=== PATIENT | male | born 1985 | race Caucasian/White ===

== ENCOUNTER 2025-02-11 17:03 | Inpatient (IN) | payer MEDICAID ==
[2025-02-11] VITALS (20 sets, daily range): BP systolic 120–139; BP diastolic 78–93; PULSE 58–101; RESP 13–20; TEMP 97.4–97.8; O2SAT 97–98
[~2025-02-11] VITALS: Ht 177.8 cm; Wt 77.3 kg
[~2025-02-11 17:03] MED LIST: aspirin 81mg tab.chew ONE
[2025-02-11] MEDS: aspirin 81mg tab.chew PO ONE (17:27)
[2025-02-11] MEDS: nitroGLYCERIN 0.4mg SUBLingual tab SL ONE (17:28)
--- NOTE | 2025-02-11 17:28 | Physician Documentation ---
History of Present Illness ~ Chief Complaint: Chest Pain Stated Complaint: CP Time Seen by MD: 17:22 HPI 39-year-old male history of prior IV drug use sober greater than 12 months presenting for chest pain. He is complaining of substernal chest discomfort ongoing 3 days with burning and radiation down his left arm as well as associated shortness of breath. He does endorse relapsing on methamphetamine Medication Reconciliation Allergies: Coded Allergies: No Known Allergies (Unverified , 02/11/25) Review of Systems All Other Systems at this time: Reviewed and Negative Constitutional: Denies: fever Physical Exam Physical Exam Well-appearing no distress resting comfortably in bed No JVD Moist mucous membranes Pulmonary clear to auscultation bilaterally Cardiac no murmur Abdomen is soft nontender Lower extremity no edema Awake alert oriented Progress Results/Orders Reviewed/noted all lab results: Yes Results/Orders Orders - AGUILAR HORNER MD Chest,Single View (02/11/25 17:35) Saline Lock (02/11/25 17:22) Monitor (02/11/25 17:22) Oxygen (02/11/25 17:22) Page Hospitalist (02/11/25 17:28) Fill Out Med Reconciliation (02/11/25 17:28) Completed Orders - AGUILAR HORNER MD Cbc/Diff (02/11/25 17:22) MG (02/11/25 17:22) Electrocardiogram (02/11/25 17:22) PBNP (02/11/25 17:22) Chest,Single View (02/11/25 17:35) Aspirin 81mg Chew Tablet (Aspirin 81mg C (02/11/25 17:25) BMP (02/11/25 17:22) Troponin (Single) (02/11/25 17:22) ESR (02/11/25 17:22) Nitroglycerin Sublingual Tab (Nitrostat (02/11/25 17:25) C-Reactive Protein (02/11/25 17:22) Drug Screen, Urine (02/11/25 17:24) Lidocaine 1%/Pf 2ml (Xylocaine-Mpf 1% Vi (02/11/25 17:33) Verapamil Inj (Verapamil Inj) (02/11/25 17:33) Midazolam 1 Mg/Ml 2ml Inj. (Versed 1 Mg/ (02/11/25 17:33) Fentanyl/Pf (Fentanyl 0.05 Mg/Ml Syringe (02/11/25 17:33) Heparin 1,000unit/Ml 10ml Vial (Heparin (02/11/25 17:33) Iohexol 350mg/Ml 100ml (Omnipaque 350mg/ (02/11/25 17:33) Heparin 1,000 Units/Ns 500ml (Heparin 1, (02/11/25 17:33) Nitroglycerin 500mcg/5ml D5w (Nitroglyce (02/11/25 17:34) Epinephrine Inj Syringe (Epinephrine Inj (02/11/25 17:48) Atropine Syringe (Atropine Syringe) (02/11/25 17:48) Midazolam 1 Mg/Ml 2ml Inj. (Versed 1 Mg/ (02/11/25 17:53) Ticagrelor Tablet (Brilinta Tablet) (02/11/25 17:55) Tirofiban 12.5mg In Ns 250ml (Aggrastat (02/11/25 18:06) Liver Panel (02/11/25 17:27) Vital Signs 02/11/25 17:23 Temp 97.8 Pulse 102 Resp 15 B/P (MAP) 128/91 Pulse Ox 99 Laboratory Tests Test 02/11/25 17:27 White Blood Count 10.7 Red Blood Count 5.73 Hemoglobin 16.5 Hematocrit 49.1 Mean Corpuscular Volume 85.8 Mean Corpuscular Hemoglobin 28.9 Mean Corpuscular Hemoglobin Concent 33.6 Red Cell Distribution Width 15.1 H Platelet Count 675 H Mean Platelet Volume 8.1 Neutrophils (%) (Auto) 76.9 H Lymphocytes (%) (Auto) 12.6 L Monocytes (%) (Auto) 8.1 Eosinophils (%) (Auto) 1.8 Basophils (%) (Auto) 0.6 Neutrophils # (Auto) 8.2 H Lymphocytes # (Auto) 1.4 Monocytes # (Auto) 0.9 Eosinophils # (Auto) 0.2 Basophils # (Auto) 0.1 CBC Comment Erythrocyte Sedimentation Rate 3 Prothrombin Time 11.1 INR International Normalized Ratio 1.1 Activated Partial Thromboplast Time 30 Coagulation Comments Sodium Level 144 Potassium Level 4.2 Chloride Level 103 Carbon Dioxide Level 34.4 H Anion Gap 7 L Blood Urea Nitrogen 4 L Creatinine 0.86 Estimated GFR/1.73 m2 > 90 BUN/Creatinine Ratio 4.7 L Glucose Level 96 Calcium Level 8.9 Magnesium Level 2.1 Total Bilirubin 0.3 Direct Bilirubin 0.1 Aspartate Amino Transf (AST/SGOT) 48 H Alanine Aminotransferase (ALT/SGPT) 27 Alkaline Phosphatase 90 Troponin I High Sensitivity 7917 *H C-Reactive Protein 1.01 H Pro-B-Type Natriuretic Peptide 1241 H Total Protein 7.8 Albumin 3.9 Globulin 3.9 Albumin/Globulin Ratio 1.0 L Chemistry Comments EKG/XRAY/CT/US/VASC/MRI EKG : Additional Comment EKG independently interpreted by myself time 5:05 p.m. indication chest pain normal sinus rhythm rate 76 normal axis normal intervals lateral ST-elevation VT Heart Score: Heart Score Response (Comments) Value History Highly Suspicious [address]-Deviation 2 Age <45 0 Risk Factors No known risk factors 0 Troponin >3 x's Normal limit 2 Total 6 Medical Decision Making Findings Consulted crane engineer they agree with STEMI taken to the school laboratory technician Additional Information Pericarditis acute coronary syndrome, pulmonary embolism Departure Disposition: ADMITTED INPATIENT Impression: Primary Impression: STEMI (ST elevation myocardial infarction) Qualified Codes: I21.3 - ST elevation (STEMI) myocardial infarction of unspecified site Referrals: NO PRIMARY CARE PROVIDER (PCP) Critical Care Note Total Time (mins): 30 Critical Care Note The very real possibility of a deterioration of this patient's condition required the highest level of my preparedness for sudden, emergent intervention. I provided critical care services, which included medication orders, frequent reevaluations of the patient's condition and response to treatment, ordering and reviewing test results, and discussing the case with various consultants. Excludes time spent performing separately billable procedures. The critical care time associated with the care of the patient was 30 minutes in the management of acute ST-elevation myocardial infarction Signature Scribe Signature: osito Attestation: AGUILAR Neil MD Feb 11, 2025 17:28
[2025-02-11] MEDS ORDERED: LIDOcaine 1% (10mg/ml) 2ml vial ONE (17:33)
[2025-02-11] MEDS ORDERED: verapamil 2.5 mg/ml inj IV ONE (17:33)
[2025-02-11] MEDS ORDERED: iohexol 350MG/ML 100ml bottle IV ONE (17:33)
[2025-02-11] MEDS ORDERED: midazolam 1 mg/ML 2ml injection ONE ×2 (17:33→17:53)
[2025-02-11] MEDS ORDERED: heparin 1,000unit/ml 10ml vial 10 ML ONE (17:33)
[2025-02-11] MEDS ORDERED: fentaNYL/PF 50MCG/1 ML 2ML syringe ONE (17:33)
[2025-02-11] MEDS ORDERED: nitroGLYCERIN 500mcg/5mL D5W 5 ML IV ONE (17:34)
[2025-02-11 17:41] LABS: BASOPHILS # (AUTO) 0.1 X10'3 (0-0.2); EOSINOPHILS # (AUTO) 0.2 X10'3 (0-0.9)
[2025-02-11 17:43] LABS: BASOPHILS % (AUTO) 0.6 % (0-1); EOSINOPHILS % (AUTO) 1.8 % (0-6); HEMATOCRIT 49.1 % (42.0-52.0); HEMOGLOBIN 16.5 g/dl (14.0-17.9); LYMPHOCYTES # (AUTO) 1.4 X10'3 (1.1-4.8); LYMPHOCYTES % (AUTO) 12.6 % (21-51); MEAN CORPUSCULAR HEMOGLOBIN 28.9 PG (27.0-31.0); MEAN CORPUSCULAR HGB CONC 33.6 g/dL (33.0-36.5); MEAN CORPUSCULAR VOLUME 85.8 FL (78-98); MEAN PLATELET VOLUME 8.1 FL (7.4-10.4); MONOCYTES # (AUTO) 0.9 X10'3 (0-0.9); MONOCYTES % (AUTO) 8.1 % (2-12); NEUTROPHILS # (AUTO) 8.2 X10'3 (1.8-7.7); NEUTROPHILS % (AUTO) 76.9 % (42-75); PLATELET COUNT 675 X10'3 (140-440); RED BLOOD COUNT 5.73 X10'6 (4.70-6.10); RED CELL DISTRIBUTION WIDTH 15.1 % (11.5-14.5); WHITE BLOOD COUNT 10.7 X10'3 (4.5-11.0)
[2025-02-11] MEDS ORDERED: epiNEPHrine 0.1mg/ml 10ml syringe ONE (17:48)
[2025-02-11] MEDS ORDERED: atropine 0.1mg/ml 10ml syringe ONE (17:48)
--- NOTE | 2025-02-11 17:51 | ELECTROCARDIOGRAPH REPORT ---
[facility] Test Date: 2025-02-11 Test Time: 17:05:54 Pat Name: TRISH HOLDEN Department: EMERGENCY ROOM Room: Gender: M Camp Director: YAMEL : 1985 Requested By: AGUILAR HORNER Order Number: [id number] Reading MD: Measurements Intervals [place] Rate: 96 P: 98 [place]: 132 QRS: 90 QRSD: 93 T: 74 QT: 344 QTc: 435 Interpretive Statements Sinus rhythm Inferolateral infarct, acute Anterior infarct, acute Please click the below link to view image of tracing.
[2025-02-11] MEDS ORDERED: ticagrelor 90mg tablet ONE (17:55)
[2025-02-11 18:00] LABS: ALBUMIN 3.9 G/DL (3.4-5.0); ANION GAP 7 (8-16); BLOOD UREA NITROGEN 4 MG/DL (7-18); BUN/CREATININE RATIO 4.7 (10.0-20.0); C-REACTIVE PROTEIN 1.01 MG/DL (0.0-0.5); CALCIUM 8.9 MG/DL (8.5-10.1); CHLORIDE 103 MMOL/L (99-107); CREATININE 0.86 MG/DL (0.60-1.10); GLUCOSE 96 MG/DL (70-104); MAGNESIUM 2.1 MG/DL (1.5-2.4); POTASSIUM 4.2 MMOL/L (3.5-5.1); PRO BRAIN NATRIURETIC PEPTIDE 1241 PG/ML (0-125); SODIUM 144 MMOL/L (135-145); TOTAL CARBON DIOXIDE 34.4 MMOL/L (24-32); eCRCL 121 ML/MIN; eGFR > 90 ML/MIN
--- NOTE | 2025-02-11 18:03 | RADIOLOGY REPORT ---
EXAM: XR Chest, 1 View CLINICAL INDICATION: CP TECHNIQUE: Frontal view of the chest. COMPARISON: None FINDINGS: LUNGS AND PLEURAL SPACES: Unremarkable. No consolidation. No pneumothorax. HEART: Unremarkable. No cardiomegaly. MEDIASTINUM: Unremarkable. Normal mediastinal contour. BONES/JOINTS: Unremarkable. No acute fracture. OTHER FINDINGS: . IMPRESSION: No acute cardiopulmonary process.
[2025-02-11] MEDS ORDERED: tirofiban 12.5mg in NS 250mL 250 ML IV ONE (18:06)
--- NOTE | 2025-02-11 18:18 | CARDIAC CATH REPORT ---
Cardiac Cath Report Providers to CC CC: JORDANA GRAJEDA MD Procedure Comments: 1. Left Heart Catheterization 2. Selective Coronary Angiography 3. Percutaneous Coronary Intervention of the Left Anterior Descending x 1 4. Right Radial Artery Access Brief History/Indications: 39yo man with PMH significant for methamphetamine use, tobacco use admitted with CP x 2 days, found to have anterolateral STEMI. Techniques: After informed consent was obtained, the patient was brought to the cardiac catheterization laboratory and prepped and draped in usual sterile fashion for left heart catheterization and other procedures mentioned above. The right wrist was anesthetized with 1% Lidocaine and the right radial artery accessed via the Seldinger technique after which a 6Fr sheath was placed. Through this a TIG was used to engage the left ventricle, the left coronary artery, and the right coronary artery. See below for interventional procedure details. At the conclusion of the case the sheath was removed and hemostasis obtained with a V ascBand. Findings Findings: HEMODYNAMICS: LV: 126/5 mmHg LVEDP: 14 mmHg Ao: 114/77, MAP 97 mmHg CORONARY ARTERIES: Co Dominant LMCA: Luminal Irregularities LAD: Mid 80% stenosis with significant thrombus in the mid to apical LAD D1: Ostial 30-40% stenosis with thrombus. LCx: Luminal Irregularities OM1: Luminal Irregularities OM2: Luminal Irregularities RCA: Luminal Irregularities PDA: Luminal Irregularities PL: Luminal Irregularities PERCUTANEOUS CORONARY INTERVENTION of the LAD: An XB LAD 3.5 guide was used to engage the left coronary artery. The LAD lesion was crossed with a BMW wire. Pre-dilatation was performed with a 2.0x12mm balloon. Repeat angiography revealed adequate pre-treatment of the lesion without evidence of dissection. Subsequently, a 3.5x18mm [place] CHERYL was deployed across the lesion. The lesion was not post-dilated. Repeat angiography revealed adequate stent expansion without evidence of dissection. There was significant thrombus in the apical LAD with JOSE CARLOS 0 flow at the apex. Results Results: 1. Obstructive CAD involving the mid-LAD with plaque rupture and significant thrombus in the mid and apical LAD 2. PCI of the mid-LAD with 3.5x18mm [place] CHERYL 3. RRA Access, closed with VascBand RECOMMENDATIONS: 1. Aggrastat bolus followed by IV infusion x 18 hours given significant apical LAD thrombus 2. Persistent ST elevations concerning for possible anterior/apical aneurysm. Will give IIb/IIIa as above 3. ASA 81mg QD for life, Brilinta 90mg BID x 12 months 4. Metop 25mg BID, Atorva 80mg QHS. AMANDA GRAJEDA MD Feb 11, 2025 18:18
[2025-02-11] MEDS ORDERED: magnesium sulf-water 2g/50mL 50 ML IV PRN (18:20)
[2025-02-11] MEDS ORDERED: mag hydrox/Alum hydrox/simeth 30ml oral suspension PO PRN (18:20)
[2025-02-11] MEDS: argatroban in NS 50mg/50ml 50 ML IV SCH (18:20)
[2025-02-11] MEDS ORDERED: potassium Cl 20 mEq SR tablet PO PRN ×2 (18:20)
[2025-02-11] MEDS ORDERED: magnesium Cl slow-release 64mg tablet PO PRN (18:20)
[2025-02-11] MEDS ORDERED: potassium Cl 40MEQ/1/2NS 520ml 520 ML IV PRN (18:20)
[2025-02-11] MEDS ORDERED: magnesium sulf-water 4G/100mL 100 ML IV PRN (18:20)
--- NOTE | 2025-02-11 18:38 | HISTORY AND PHYSICAL ---
History of Present Illness CC: JORDANA HERBERT MD End CC ~ Admission Diagnosis:.: STEMI History of Present Illness This is a 39-year-old male who presented to the emergency department secondary to a two day history of chest pain. He attributed his symptoms to stress. Pain substernal and radiating down his left arm. Described as burning. History of methamphetamine use and last use was seven days ago. Positive tobacco use. Denies other drugs or alcohol use. EKG in the emergency department was completed that was positive for anterior STEMI. STEMI alert was called and patient was taken emergently to the cardiac catheterization lab with Dr. Stephanie Herbert. Found to have plaque rupture to the LAD with significant thrombus burden. This was successfully angioplastied and stented with 3.5 x 18 mm martha [place] drug-eluting stent. Allergies: Coded Allergies: No Known Allergies (Unverified , 02/11/25) Past Medical History Past Medical History: No Pertinent History Past Surgical History Past Surgical History: other (Back surgery) Past Social History Smoking: Cigarettes Alcohol Use: None Drug Use: Methamphetamine Lives In: Home Counseling Services Smoking & Tobacco Cessation: > 10 Minutes Advance Care Planning Advanced Care plannin - 30 Minutes Review of Systems ROS Patient complains of chest pain as described in HPI. No shortness a breath. No dizziness, lightheadedness. No nausea, vomiting. Complains of significant stress. Was asked, but otherwise denies review of systems. Constitutional: Denies: fever Physical Exam Last Vital Signs recorded: RN Vital Signs have been reviewed: Yes, Temperature: 97.8, Source: Temporal, Heart Rate: 102, Respiratory Rate: 15, BP: 128/91, Pulse Oximetry: 99, Weight: 77.270 Physical Exam General: Awake, alert, oriented. No apparent distress Neck: Supple. Normal range of motion. No JVD Respiratory: Lungs are clear to auscultation bilaterally. No respiratory distress. Chest: Normal shape and size. No accessory muscle use. Cardiovascular: Regular rate and rhythm. S1-S2. No murmur, gallop, rub. Gastrointestinal: Abdomen is soft. Nontender to palpation. Bowel sounds present. Extremities: No lower extremity edema, cyanosis or clubbing. Neurologic: Alert and oriented x4. Nonfocal Psychiatric: Normal mood and affect. Skin: Normal color. Warm and dry. Results Diagram Lab Result Diagram: [id number] Assessment/Plan Additional Plan This is a 39-year-old male who presented with chest pain. The following is his problem list: STEMI Underwent PCI of the mid LAD. --heparin stopped --given significant thrombus burden we will be on Aggrastat for 18 hours --Brilinta 90 mg b.i.d. for 12 months --aspirin 81 mg daily for life --metoprolol tartrate 25 mg b.i.d. --atorvastatin 80 mg daily. Check lipids. Goal LDL less than 55 --referral for cardiac rehab --Echocardiogram tomorrow morning --EKG in the morning Methamphetamine use disorder --encouraged to quit --social service consult for substance abuse navigator Tobacco use --encouraged to quit Patient was being admitted and will require monitoring for at least 48 hours. DVT prophylaxis with Brilinta/aggrastat Full code Reviewed with Dr. Stephanie Herbert who is in agreement with the above. Supervising MD Co-signing Provider: AMBROSIO Forte NP Feb 11, 2025 18:38
[2025-02-11 18:55] LABS: APTT 30 SECONDS (22-32); INR 1.1 INR; PROTHROMBIN TIME 11.1 SECONDS (9.0-12.0)
[2025-02-11 18:57] LABS: ALANINE AMINOTRANSFERASE 27 U/L (12-78); ALKALINE PHOSPHATASE 90 IU/L (46-116); ASPARTATE AMINO TRANSFERASE 48 U/L (10-37); BILIRUBIN,DIRECT 0.1 MG/DL (0-0.3); BILIRUBIN,TOTAL 0.3 MG/DL (0.1-1.0); TOTAL PROTEIN 7.8 G/DL (6.4-8.2)
[2025-02-11] MEDS: K and/or MAG REPLACEMENT MC SCH (20:00)
[2025-02-11] MEDS: atorvastatin 20mg tablet PO SCH (22:58)
[2025-02-11] MEDS: metoprolol tartrate 25mg tablet PO SCH (22:59)
[2025-02-11] MEDS: acetaminophen 325mg tablet PO PRN (23:21)
[2025-02-11 23:50] LABS: URINE AMPHETAMINE SCREEN NEGATIVE (Neg); URINE BARBITUATE SCREEN NEGATIVE (Neg); URINE BENZODIAZEPINES SCREEN POSITIVE (Neg); URINE CANNABINOID SCREEN NEGATIVE (Neg); URINE COCAINE SCREEN NEGATIVE (Neg); URINE METHADONE SCREEN NEGATIVE (Neg); URINE OPIATE SCREEN NEGATIVE (Neg); URINE PHENCYCLIDINE SCREEN NEGATIVE (Neg)
[2025-02-12] VITALS (17 sets, daily range): BP systolic 113–138; BP diastolic 60–94; PULSE 56–79; RESP 13–20; TEMP 97.3–98.6; O2SAT 94–98
[2025-02-12 02:42] LABS: APTT 31 SECONDS (22-32)
[2025-02-12] MEDS: morphine 2 MG/ML inj. syringe IV ONE (03:58)
[2025-02-12] MEDS: ondansetron/PF 4mg/2ml inj IV PRN (04:02)
[2025-02-12 06:03] LABS: BASOPHILS # (AUTO) 0.1 X10'3 (0-0.2); BASOPHILS % (AUTO) 0.7 % (0-1); EOSINOPHILS # (AUTO) 0.3 X10'3 (0-0.9); EOSINOPHILS % (AUTO) 3.3 % (0-6); HEMATOCRIT 45.1 % (42.0-52.0); HEMOGLOBIN 15.3 g/dl (14.0-17.9); LYMPHOCYTES # (AUTO) 1.3 X10'3 (1.1-4.8); LYMPHOCYTES % (AUTO) 14.4 % (21-51); MEAN CORPUSCULAR HEMOGLOBIN 29.1 PG (27.0-31.0); MEAN CORPUSCULAR VOLUME 85.6 FL (78-98); MEAN PLATELET VOLUME 7.9 FL (7.4-10.4); MONOCYTES # (AUTO) 0.9 X10'3 (0-0.9); MONOCYTES % (AUTO) 10.2 % (2-12); NEUTROPHILS # (AUTO) 6.4 X10'3 (1.8-7.7); NEUTROPHILS % (AUTO) 71.4 % (42-75); PLATELET COUNT 522 X10'3 (140-440); RED BLOOD COUNT 5.27 X10'6 (4.70-6.10); RED CELL DISTRIBUTION WIDTH 14.7 % (11.5-14.5)
[2025-02-12 06:23] LABS: ALBUMIN 3.1 G/DL (3.4-5.0); ANION GAP 7 (8-16); BLOOD UREA NITROGEN 5 MG/DL (7-18); BUN/CREATININE RATIO 6.8 (10.0-20.0); CALCIUM 8.4 MG/DL (8.5-10.1); CHLORIDE 106 MMOL/L (99-107); CHOL/HDL RATIO 2.3 (0.00-4.99); CHOLESTEROL 102 MG/DL (0-200); CREATININE 0.73 MG/DL (0.60-1.10); GLUCOSE 96 MG/DL (70-104); HDL CHOLESTEROL 44 MG/DL (35-60); LDL CHOLESTEROL 46 MG/DL (50-100); POTASSIUM 4.3 MMOL/L (3.5-5.1); SODIUM 142 MMOL/L (135-145); TOTAL CARBON DIOXIDE 29.1 MMOL/L (24-32); TRIGLYCERIDES 70 MG/DL (20-135); eCRCL 143 ML/MIN; eGFR > 90 ML/MIN
[2025-02-12] MEDS: MESSAGE TO NURSING PO ONE (07:13)
[2025-02-12] MEDS: ticagrelor 90mg tablet PO SCH (07:31)
[2025-02-12] MEDS: aspirin 81mg tab.chew PO SCH (07:31)
--- NOTE | 2025-02-12 07:44 | ELECTROCARDIOGRAPH REPORT ---
[facility] Test Date: 2025-02-12 Test Time: 07:43:29 Pat Name: TRISH HOLDEN Department: [facility] Room: [facility] [address] A Gender: M Traffic Control Signaler: PARESH : 1985 Requested By: AMBROSIO LOPES Order Number: [id number] Reading MD: Dr. Dutch Dee Measurements Intervals [place] Rate: 72 P: 69 [place]: 172 QRS: 66 QRSD: 92 T: 65 QT: 387 QTc: 424 Interpretive Statements Sinus rhythm Inferior infarct, acute (LCx) ST elevation, acute anterolateral injury Electronically Signed On 02-12-2025 8:17:[address] Dutch Dee Please click the below link to view image of tracing.
[2025-02-12] MEDS ORDERED: atorvastatin 20mg tablet PO SCH (08:00)
[2025-02-12] MEDS: nitroGLYCERIN 0.4mg SUBLingual tab SL PRN (08:04)
[2025-02-12] MEDS: morphine 2 MG/ML inj. syringe ONE (08:05)
[2025-02-12] MEDS: morphine 2 MG/ML inj. syringe IV PRN (08:06)
--- NOTE | 2025-02-12 12:23 | PROGRESS NOTE ---
Progress Note Cardiology Providers to CC ~ Subjective Subjective Continues to have intermittent chest pain. Objective Result Diagram: 02/12/25 0545 02/12/2545 Objective General: Awake, alert, oriented. No apparent distress Neck: Supple. Normal range of motion. No JVD Respiratory: Lungs are clear to auscultation bilaterally. No respiratory distress. Chest: Normal shape and size. No accessory muscle use. Cardiovascular: Regular rate and rhythm. S1-S2. No murmur, gallop, rub. Gastrointestinal: Abdomen is soft. Nontender to palpation. Bowel sounds present. Extremities: No lower extremity edema, cyanosis or clubbing. Neurologic: Alert and oriented x4. Nonfocal Psychiatric: Normal mood and affect. Skin: Normal color. Warm and dry. Coagulation Studies Laboratory Tests Test 02/11/25 17:27 02/12/25 02:10 02/12/25 05:45 Prothrombin Time 11.1 SECONDS (9.0-12.0) INR International Normalized Ratio 1.1 INR Activated Partial Thromboplast Time 31 SECONDS (22-32) APTT (Heparin Protocol) 32 SECONDS (45-60) L Coagulation Comments Problem\Assessment\Plan Additional Plan This is a 39-year-old male who presented with chest pain. The following is his problem list: STEMI Underwent PCI of the mid LAD. --heparin stopped --given significant thrombus burden we will be on Aggrastat for 18 hours. stoped overnight. Will restart. --Brilinta 90 mg b.i.d. for 12 months --aspirin 81 mg daily for life --metoprolol tartrate 25 mg b.i.d. --atorvastatin 80 mg daily. --referral for cardiac rehab --Echocardiogram completed and pending. By preliminary no LV aneurysm --EKG with improvement in ST segment elevation Discussed findings with patient and need for continued admission as well as need for adherence with medications. Risks reviewed. He verbalized understanding. Medication list also reviewed with his mother over the telephone. Methamphetamine use disorder --encouraged to quit --social service consult for substance abuse navigator Tobacco use --encouraged to quit Case reviewed with dr. Herbert Plan: continue admit. If stable consider discharge tomorrow. Discussed with nursing DVT prophalaxis with Brilinta. Supervising Physician: AMBROSIO Farah NP Feb 12, 2025 12:23
[2025-02-12] MEDS: tirofiban 12.5mg in NS 250mL 250 ML IV SCH (12:43)
[2025-02-12] MEDS: isosorbide mononitrate 30mg tab.SR.24H PO SCH (14:55)
[2025-02-12] MEDS: acetaminophen 325mg tablet PO PRN (16:01)
[2025-02-12] MEDS: morphine 4 MG/ML inj SYRINge IV PRN (16:04)
--- NOTE | 2025-02-12 18:34 | CARDIOLOGY REPORT ---
APPROVED REPORT EXAM: Comprehensive 2D, Doppler, and color-flow Echocardiogram. Patient Location: 3012 A Blood Pressure: 129/94 mmHg Heart Rate: 66 bpm Rhythm: SINUS w/ST ELEVATION (persistent) Indications CORONARY ARTERY DISEASE S/P STENT X1 Nutritional Chemist: Mayela Herbert MD Previous echo: none 2D Dimensions RVDd 3.5 cm IVSd 1.3 (0.7-1.1cm) LVDd 4.5 cm PWd 1.2 (0.7-1.1cm) IVSs 1.6 (0.8-1.2cm) LVDs 3.0 (2.5-4.0cm) PWs 1.7 (0.8-1.2cm) LVOT Diameter 1.98 (1.8-2.4cm) LVEF(%) 63.2 (>50%) Ao Asc Diam.2.85 cm IVC 20.84 mmFS (%) 34.1 % SV 57.8 ml CO 2.0 L/min M-Mode Dimensions Left Atrium(MM) 2.62 (2.5-4.0cm) Aortic Root 2.71 (2.2-3.7cm) Aortic Cusp Exc 2.17 (1.5-2.0cm) MV EPSS 0.5 (<0.5cm) FS (%) 19 % ESV(Teich) 44.2 ml Aortic Valve AoV Peak Cordell. 118.9 cm/s AoV VTI 22.7 cm AO Peak GR. 5.7 mmHg AO Mean GR. 3 mmHg LVOT VTI 17.00 cm LVOT Peak Cordell. 106.2 cm/s BABAR(VTI)/BSA 2.31 cm2/m2 BABAR (VTI) 2.31 cm2 Mitral Valve MV E Velocity 81.4 cm/s MV Peak Gr. 3 mmHg MV DECEL TIME 212 ms MV A Velocity 59.7 cm/s MV PHT 56 ms E/A Ratio 1.4 MVA (PHT) 3.93 cm2 MV VMax86.0 cm/s TDI Medial E' P. V 11.97 cm/s E/Medial E' 6.8 Tricuspid Valve TR P. Velocity 210 cm/s RAP ESTIMATE 5 mmHg TR Peak Gr. 18 mmHg RVSP 23 mmHg Pulmonary Vein S1 Velocity 55.3 cm/s D2 Velocity 50.5 cm/s PVa Dmtlihfz00.8 cm/s PVa [id number] msec LEFT VENTRICLE Normal LV size and wall thickness. Overall systolic function is normal. ? tiny basal anteroseptal ane urysm. LVEF is 55-60%. RIGHT VENTRICLE RV is mildly dilated in size with normal function. ATRIA The left atrium size is normal. The right atrium size is normal. AORTIC VALVE Trileaflet AV appears normal without stenosis or insufficiency. MITRAL VALVE Normal MV annulus without calcification or stenosis. Trace regurgitation. TRICUSPID VALVE TV appears structurally normal with trace regurgitation. PULMONIC VALVE Normal PV without stenosis, physiologic insufficiency. GREAT VESSELS Aortic root is normal in size. Ascending aorta is normal in size. IVC is normal in size and collapses greater than 50% with inspiration. PERICARDIUM Normal pericardium. No effusion. Other Information Study Quality: Adequate Conclusion Normal LV size and wall thickness. Overall systolic function is normal. ? Tiny basal anteroseptal ane urysm. LVEF is 55-60%. RV is mildly dilated in size with normal function. The left atrium size is normal. Trileaflet AV appears normal without stenosis or insufficiency. Normal MV annulus without calcification or stenosis. Trace regurgitation. TV appears structurally normal with trace regurgitation. Normal pericardium. No effusion.
[2025-02-12 19:12] LABS: BASOPHILS # (AUTO) 0.1 X10'3 (0-0.2); EOSINOPHILS # (AUTO) 0.3 X10'3 (0-0.9); EOSINOPHILS % (AUTO) 3.4 % (0-6); HEMATOCRIT 43.7 % (42.0-52.0); HEMOGLOBIN 15.1 g/dl (14.0-17.9); LYMPHOCYTES # (AUTO) 1.3 X10'3 (1.1-4.8); LYMPHOCYTES % (AUTO) 16.9 % (21-51); MEAN CORPUSCULAR HEMOGLOBIN 29.7 PG (27.0-31.0); MEAN CORPUSCULAR HGB CONC 34.6 g/dL (33.0-36.5); MEAN CORPUSCULAR VOLUME 85.8 FL (78-98); MONOCYTES # (AUTO) 0.6 X10'3 (0-0.9); MONOCYTES % (AUTO) 8.3 % (2-12); NEUTROPHILS # (AUTO) 5.5 X10'3 (1.8-7.7); NEUTROPHILS % (AUTO) 70.4 % (42-75); PLATELET COUNT 543 X10'3 (140-440); RED BLOOD COUNT 5.09 X10'6 (4.70-6.10); RED CELL DISTRIBUTION WIDTH 14.6 % (11.5-14.5); WHITE BLOOD COUNT 7.8 X10'3 (4.5-11.0)
[2025-02-12 19:17] LABS: APTT 32 SECONDS (22-32)
[2025-02-13] VITALS (7 sets, daily range): BP systolic 109–120; BP diastolic 58–68; PULSE 63–75; RESP 14–21; TEMP 97.6–98.4; O2SAT 96–99
[2025-02-13 06:09] LABS: BASOPHILS % (AUTO) 0.4 % (0-1); EOSINOPHILS # (AUTO) 0.3 X10'3 (0-0.9); EOSINOPHILS % (AUTO) 3.1 % (0-6); HEMATOCRIT 45.5 % (42.0-52.0); HEMOGLOBIN 15.6 g/dl (14.0-17.9); LYMPHOCYTES # (AUTO) 1.4 X10'3 (1.1-4.8); LYMPHOCYTES % (AUTO) 14.5 % (21-51); MEAN CORPUSCULAR HEMOGLOBIN 29.3 PG (27.0-31.0); MEAN CORPUSCULAR HGB CONC 34.2 g/dL (33.0-36.5); MEAN CORPUSCULAR VOLUME 85.7 FL (78-98); MEAN PLATELET VOLUME 7.9 FL (7.4-10.4); MONOCYTES # (AUTO) 0.9 X10'3 (0-0.9); MONOCYTES % (AUTO) 9.4 % (2-12); NEUTROPHILS # (AUTO) 6.8 X10'3 (1.8-7.7); NEUTROPHILS % (AUTO) 72.6 % (42-75); PLATELET COUNT 525 X10'3 (140-440); RED BLOOD COUNT 5.31 X10'6 (4.70-6.10); RED CELL DISTRIBUTION WIDTH 14.9 % (11.5-14.5); WHITE BLOOD COUNT 9.4 X10'3 (4.5-11.0)
[2025-02-13 06:21] LABS: ALBUMIN 3.2 G/DL (3.4-5.0); ANION GAP 6 (8-16); BLOOD UREA NITROGEN 6 MG/DL (7-18); CHLORIDE 104 MMOL/L (99-107); CREATININE 0.75 MG/DL (0.60-1.10); GLUCOSE 97 MG/DL (70-104); MAGNESIUM 2.1 MG/DL (1.5-2.4); POTASSIUM 4.3 MMOL/L (3.5-5.1); SODIUM 140 MMOL/L (135-145); TOTAL CARBON DIOXIDE 29.9 MMOL/L (24-32); eCRCL 139 ML/MIN; eGFR > 90 ML/MIN
[2025-02-13] MEDS ORDERED: NO HOME MEDS (07:00)
--- NOTE | 2025-02-13 13:06 | ELECTROCARDIOGRAPH REPORT ---
[facility] Test Date: 2025-02-13 Test Time: 13:05:01 Pat Name: TRISH HOLDEN Department: [facility] Room: [place] [address] A Gender: M Lever Operator: PARESH : 1985 Requested By: AMBROSIO LOPES Order Number: [id number] Reading MD: Dr. Dutch Dee Measurements Intervals [place] Rate: 61 P: 77 [place]: 171 QRS: 73 QRSD: 94 T: 75 QT: 405 QTc: 408 Interpretive Statements Sinus rhythm Inferior infarct, acute (LCx) Anterior injury pattern Electronically Signed On 02-15-2025 8:16:[address] Dutch Dee Please click the below link to view image of tracing.
[2025-02-13] MEDS: diphenhydrAMINE 25mg capsule PO PRN (23:08)
[2025-02-14 02:00] VITALS: BP 108/66; PULSE 62; RESP 16; TEMP 97.4; O2SAT 96
[2025-02-14 06:00] VITALS: BP 101/60; PULSE 82; RESP 21; TEMP 97.6; O2SAT 93
[2025-02-14 06:03] LABS: BASOPHILS # (AUTO) 0.1 X10'3 (0-0.2); BASOPHILS % (AUTO) 1.2 % (0-1); EOSINOPHILS # (AUTO) 0.4 X10'3 (0-0.9); EOSINOPHILS % (AUTO) 4.8 % (0-6); HEMATOCRIT 48.5 % (42.0-52.0); HEMOGLOBIN 16.5 g/dl (14.0-17.9); LYMPHOCYTES # (AUTO) 1.7 X10'3 (1.1-4.8); LYMPHOCYTES % (AUTO) 19.7 % (21-51); MEAN CORPUSCULAR HEMOGLOBIN 29.1 PG (27.0-31.0); MEAN CORPUSCULAR HGB CONC 33.9 g/dL (33.0-36.5); MEAN CORPUSCULAR VOLUME 85.7 FL (78-98); MEAN PLATELET VOLUME 7.8 FL (7.4-10.4); MONOCYTES # (AUTO) 0.7 X10'3 (0-0.9); MONOCYTES % (AUTO) 7.8 % (2-12); NEUTROPHILS # (AUTO) 5.8 X10'3 (1.8-7.7); NEUTROPHILS % (AUTO) 66.5 % (42-75); PLATELET COUNT 550 X10'3 (140-440); RED BLOOD COUNT 5.66 X10'6 (4.70-6.10); RED CELL DISTRIBUTION WIDTH 14.8 % (11.5-14.5); WHITE BLOOD COUNT 8.7 X10'3 (4.5-11.0)
[2025-02-14 06:11] LABS: ALBUMIN 3.2 G/DL (3.4-5.0); ANION GAP 9 (8-16); BLOOD UREA NITROGEN 9 MG/DL (7-18); BUN/CREATININE RATIO 14.5 (10.0-20.0); CHLORIDE 103 MMOL/L (99-107); CREATININE 0.62 MG/DL (0.60-1.10); GLUCOSE 82 MG/DL (70-104); MAGNESIUM 2.2 MG/DL (1.5-2.4); POTASSIUM 5.1 MMOL/L (3.5-5.1); SODIUM 142 MMOL/L (135-145); TOTAL CARBON DIOXIDE 29.8 MMOL/L (24-32); eCRCL 168 ML/MIN; eGFR > 90 ML/MIN
[2025-02-14 08:00] VITALS: RESP 20; O2SAT 99
[2025-02-14 11:00] VITALS: BP 115/69; PULSE 59; RESP 17; TEMP 97.6; O2SAT 96
[2025-02-14 15:00] VITALS: BP 117/66; PULSE 74; RESP 16; TEMP 97.3; O2SAT 96
[2025-02-14] MEDS ORDERED: ATOR-429 PO ×2 (15:42→16:35)
[2025-02-14] MEDS ORDERED: ASPI81TA53 PO ×2 (15:42→16:35)
[2025-02-14] MEDS ORDERED: LOP25T PO ×2 (15:42→16:35)
[2025-02-14] MEDS ORDERED: ISOS60TA71 PO (15:42)
[2025-02-14] MEDS ORDERED: TICA90TA PO ×2 (15:42→16:35)
[2025-02-14] MEDS ORDERED: NITR0.4T51 SL ×2 (15:42→16:35)
[2025-02-14] MEDS ORDERED: ISOS30TA84 PO (16:35)
--- NOTE | 2025-02-14 16:53 | DISCHARGE SUMMARY ---
Discharge Summary Providers to CC ~ Discharge Summary Admission Diagnosis: STEMI Hospital Course DATE OF ADMISSION: 02/11/25 DATE OF DISCHARGE: 05/17/25 Discharge Diagnosis\Comment: STEMI status post PCI of the mid LAD Operations\Procedures: 1. Left Heart Catheterization 2. Selective Coronary Angiography 3. Percutaneous Coronary Intervention of the Left Anterior Descending x 1 4. Right Radial Artery Access Consultants: No consultants Complications: No complications Condition on DC: Stable New Medications: Aspirin (Children's Aspirin) 81 Mg Tab.chew 81 MG PO DAILY@0830 for 30 Days, #30 TAB.CHEW 11 Refills Atorvastatin Calcium* (Lipitor*) 80 Mg Tablet 1 TAB PO DAILY for 30 Days, #30 TAB 2 Refills Isosorbide Mononitrate (Isosorbide Mononitrate Er) 30 Mg Tab.er.24h 30 MG PO DAILY for 30 Days, #30 TAB.SR 2 Refills Metoprolol Tartrate* (Lopressor tablet*) 25 Mg Tablet 25 MG PO Q12H for 30 Days, #60 TAB 2 Refills Hold for SBP below 100mm Hg Hold for Heart Rate below 60. Nitroglycerin SL* (Nitrostat SL*) 0.4 Mg Tablet 0.4 MG SL Q5MIN PRN for CHEST PAIN for 30 Days, #30 TAB 1 Refill Ticagrelor (Brilinta) 90 Mg Tablet 90 MG PO BID for 30 Days, #60 TAB 11 Refills Discharge Summary: This is a 39-year-old male who has past medical history significant for drug abuse and asthma. Presented with a two day history of intermittent chest pain. Found to have anterolateral STEMI. Was taken to the cardiac catheterization lab emergently and underwent PCI of the mid LAD. Was found to have plaque rupture and significant thrombus burden. Please see Dr. Christian Herbert's dictation for f urther details on the procedure. Was treated with Aggrastat (totaling 18 hours). His initial high sensitivity troponin was 7917 and NT proBNP 1241. Post procedure continued to have intermittent chest pain which was treated with nitroglycerin and then he was given morphine by hospitalist service. Continued to complain of back pain which is chronic for him. Serial EKGs were monitored with continued improvement in ST segments. His echocardiogram demonstrated preserved EF with no wall motion abnormalities. There was a question of a tiny basal anteroseptal aneurysm. He remained hemodynamically stable throughout his hospitalization. Physical exam her to discharge: General: Awake, alert, oriented. No apparent distress Neck: Supple. Normal range of motion. No JVD Respiratory: Lungs are clear to auscultation bilaterally. No respiratory distress. Chest: Normal shape and size. No accessory muscle use. Cardiovascular: Regular rate and rhythm. S1-S2. No murmur, gallop, rub. Gastrointestinal: Abdomen is soft. Nontender to palpation. Bowel sounds present. Extremities: No lower extremity edema, cyanosis or clubbing. Neurologic: Alert and oriented x4. Nonfocal Psychiatric: Normal mood and affect. Skin: Normal color. Warm and dry. Plan: Being discharged home in stable condition. Extensive education was provided on the need for follow up care. He was educated that he needs to continue with his Brilinta twice daily without fail for one year following his CA. Risks up to and including and disability were reviewed. He will continue aspirin 81 mg daily for life. High-intensity statin to keep LDL less t charles 55. Recommend recheck complete metabolic panel and lipid panel in six weeks. He will continue metoprolol 25 mg b.i.d.. He was given prescription for isosorbide given his complaints of chest pain that was intermittent while in the hospital as well as a prescription for sublingual nitroglycerin. Education provided on its use. Patient was highly encouraged to obtain a primary care provider. Follow up with Cardiology in 1-2 weeks. Case reviewed with Dr. Stephanie Herbert. Patient is hemodynamically stable. In agreement with discharge home. *Problems/Diagnosis: (1) STEMI (ST elevation myocardial infarction) Status: Acute Total Time Spent on D/C: > 30 Minutes Counseling Services Smoking & Tobacco Cessation: 3-10 Minutes Problem Qualifiers (1) STEMI (ST elevation myocardial infarction): Qualified Codes: I21.02 - ST elevation (STEMI) myocardial infarction involving left anterior descending coronary artery AMBROSIO LOPES NP Feb 14, 2025 16:51
== END 2025-02-14 18:30 | disposition home or self-care (01) | DRG 174 ==
LOC: ER 17:04 → ED HOLD 18:27 → PCU 3S 19:00
PROVIDERS: ADMIT Student in an Organized Health Care Education/Training Program; ATTEND Student in an Organized Health Care Education/Training Program
PROC: 027034Z Dilation of Coronary Artery, One Artery with Drug-eluting Intraluminal Device, Percutaneous Approach (ICD-10-PCS; principal; 2025-02-11)
PROC: 4A023N7 Measurement of Cardiac Sampling and Pressure, Left Heart, Percutaneous Approach (ICD-10-PCS; 2025-02-11)
PROC: B2111ZZ Fluoroscopy of Multiple Coronary Arteries using Low Osmolar Contrast (ICD-10-PCS; 2025-02-11)
DX: I21.09 ST elevation (STEMI) myocardial infarction involving other coronary artery of anterior wall (principal); F15.10 Other stimulant abuse, uncomplicated; F17.210 Nicotine dependence, cigarettes, uncomplicated; I25.10 Atherosclerotic heart disease of native coronary artery without angina pectoris; G89.29 Other chronic pain; J45.909 Unspecified asthma, uncomplicated; Z79.82 Long term (current) use of aspirin; Z79.899 Other long term (current) drug therapy
CPT/HCPCS: 36415; 71045; 80048; 80061; 80076; 80305; 83735; 83880; 84484; 85025; 85610; 85651; 85730; 86140; 87081; 93005; 93306; 93458; 99152; 99153; 99291; A4615; A6258; C1725; C1751; C1769; C1874; C1894; C9606; G0378; J0171; J0461; J0883; J1644; J2003; J2250; J2270; J2405; J3010; J3246; J3490; J7030; J7040; Q0163; Q9967